=== PATIENT | female | born 1985 | race Caucasian/White ===

== ENCOUNTER 2017-11-12 21:11 | Emergency (ER) | payer SELFPAY ==
[2017-11-12 21:24] VITALS: BMI 25.4
--- NOTE | 2017-11-12 22:24 | PDOC ---
Attending Attestation - Physicial Exam PE: 11/12/17 22:50 ADULT EXAM GENERAL: Awake, alert, and fully oriented, in no acute distress HEAD: No signs of trauma EYES: PERRLA, EOMI, sclera anicteric, conjunctiva clear ENT: Auricles normal inspection, hearing grossly normal, nares patent, oropharynx clear without exudates. Moist mucosa NECK: Normal ROM, supple, no lymphadenopathy, JVD, or masses LUNGS: Breath sounds equal, clear to auscultation bilaterally. No wheezes, and no crackles HEART: Regular rate and rhythm, normal S1 and S2, no murmurs, rubs or gallops ABDOMEN: Soft, nontender, normoactive bowel sounds. No guarding, no rebound. No masses EXTREMITIES: Normal range of motion, no edema. No clubbing or cyanosis. No cords, erythema, or tenderness NEUROLOGICAL: Cranial nerves II through XII grossly intact. Normal speech, normal gait SKIN: Warm, Dry, normal turgor, no rashes or lesions noted. No skin cellulitis. <Martina Dixon - Last Filed: 11/12/17 22:50> - Resident Resident Name: Mae Yates - ED Attending Attestation I have performed the following: I have examined & evaluated the patient, The case was reviewed & discussed with the resident, I agree w/resident's findings & plan - HPI HPI: 11/12/17 22:49 Pt had an ingorwn hair x 1 mos; became infected. Pt drained it herself. Now it is painful. No skin cellulitis. Pt will be treated with a tdap and she will receive bactrim DS for it. - Medical Decision Making 11/12/17 22:54 Pt will go home with bactrim DS <Maricarmen Packer - Last Filed: 11/12/17 22:54>
--- NOTE | 2017-11-12 22:38 | PDOC ---
History of Present Illness - General Chief Complaint: Abscess Boil Stated Complaint: RASH Time Seen by Provider: 11/12/17 22:19 History Source: Patient Exam Limitations: No Limitations - History of Present Illness Initial Comments: 11/12/17 22:33 pt is a 32yo f with pmh of bipolar presenting to ED because of a "boil" on her inner R thigh. Pt noticed he boil 1 month ago and it hurt for the first day or two but then the pain stopped, however the lump did not go away. t said last week the pain started back up and 2 days ago she placed a needle in it and it was draining pus. Pt says it is still very tender. She has been taking ibuprofen 800 for the pain but it has not helped much. She admits to some nausea. She denies fever, chills, V/D, abdominal pain, shortness of breath, cp, vaginal discharge, any other lesions She denies history of STDs. Currently menstruating. PCP: none PMH: bipolar PSH: , tubal ligation meds: seroquel, trileptal (not currently on meds) allergies: tramadol,toradol,zithromax social: smokes 4-5 cigaretes/day. denies illicit drug use Past History - Past Medical History Allergies/Adverse Reactions: Allergies Allergy/AdvReac Type Severity Reaction Status Date / Time azithromycin [From Zithromax] Allergy Verified 11/12/17 21:20 ketorolac [From Toradol] Allergy Verified 11/12/17 21:20 tramadol Allergy Verified 11/12/17 21:20 Home Medications: Ambulatory Orders Acetaminophen [Tylenol -] 500 mg PO BID #14 tablet 11/12/17 Sulfamethoxazole/Trimethoprim [Bactrim Ds -] 1 tab PO BID #14 tablet 11/12/17 COPD: No Psychiatric Problems: Yes - Suicide/Smoking/Psychosocial Hx Smoking History: Current every day smoker Number of Cigarettes Smoked Daily: 7 Information on smoking cessation initiated: No *Physical Exam - Vital Signs Last Vital Signs Temp Pulse Resp BP Pulse Ox 98.9 F 84 18 100/39 100 11/12/17 21:21 11/12/17 21:21 11/12/17 21:21 11/12/17 21:21 11/12/17 21:21 - Physical Exam Integumentary: positive: Normal Color, Dry, Warm, Other (hard papule with healing sore. no fluctuance, no induration, not warm.) *DC/Admit/Observation/Transfer Diagnosis at time of Disposition: Abscess - Discharge Dispostion Disposition: HOME Condition at time of disposition: Improved Decision to Admit order: No - Prescriptions Prescriptions: Acetaminophen [Tylenol -] 500 mg PO BID #14 tablet Sulfamethoxazole/Trimethoprim [Bactrim Ds -] 1 tab PO BID #14 tablet - Referrals - Patient Instructions Printed Discharge Instructions: DI for Skin Abscess Additional Instructions: You were seen here today because you had an abscess on your inner thigh. It is no longer draining and it looks like it is healing. I have prescribed you antibiotics for you to take: Bactrim DS take twice a day for 7 days. I also prescribed extra strength Tylenol which is also over the counter. Please come back to the ED if: the abscess comes back, if you notice purulent drainage, if it spreads, if you develop fever or if any new concerning symptom develops. Thank you - Post Discharge Activity
[2017-11-12] MEDS ORDERED: ACETAMINOPHEN 500 MG TABLET (FP) PO ONE (22:48)
[2017-11-12] MEDS ORDERED: TETANUS AND DIPHTHERIA TOXOID 0.5 ML DISP.SYRIN IM ONE (22:48)
[2017-11-12] MEDS ORDERED: SULFAMETHOXAZOLE/TRIMETHOPRIM 800MG/160MG D.S. TABLET PO ONE (22:49)
[2017-11-12] MEDS ORDERED: ACETAMINOPHEN 325 MG TABLET (FP) ONE (23:17)
[2017-11-12] MEDS ORDERED: SULFAMETHOXAZOLE/TRIMETHOPRIM 800MG/160MG D.S. TABLET ONE (23:18)
[2017-11-12 23:32] VITALS: BP 118/76; PULSE 92; TEMP 97.8
== END 2017-11-12 23:29 | disposition home or self-care (01) ==
LOC: JER 21:11
PROC: 3E0234Z Introduction of Serum, Toxoid and Vaccine into Muscle, Percutaneous Approach (ICD-10-PCS; principal; 2017-11-12)
DX: L02.415 Cutaneous abscess of right lower limb (principal)
CPT/HCPCS: 99281-25